=== PATIENT | female | born 1975 | race Caucasian/White ===

== ENCOUNTER → 2016-11-23 | Outpatient (CLI) | payer OTHER ==
--- NOTE | 2016-11-23 13:03 | MA ---
Diagnostic Digital Left Mammogram History: Asymmetry upper left breast. Comparison: Screening mammography November 13, 2016. Technique: A true-lateral view and 2 spot views of the upper left breast. Breast Density: 2 Findings: The density in the upper left breast does not persist on the true-lateral view and on the s mall-paddle spot compression view has the appearance of normal parenchyma that is stable since 2014. Impression: Negative left breast. BI-RADS: Category 1 . Negative. Recommendation: Screening mammography in October 2017. Results and recommendation were communicated to the patient at the time of the examination.
== END ==
LOC: FIMAGING 12:13
PROVIDERS: ATTEND Internal Medicine
DX: R92.8 Other abnormal and inconclusive findings on diagnostic imaging of breast (principal)
CPT/HCPCS: G0206

== ENCOUNTER → 2017-11-22 | Outpatient (CLI) | payer OTHER | LOC: FIMAGING 14:45 | PROVIDERS: ATTEND Obstetrics & Gynecology | DX: Z12.31 Encounter for screening mammogram for malignant neoplasm of breast (principal) ==

== ENCOUNTER → 2018-12-24 | Outpatient (CLI) | payer OTHER | LOC: FIMAGING 10:46 | PROVIDERS: ATTEND Internal Medicine Rheumatology | DX: Z12.31 Encounter for screening mammogram for malignant neoplasm of breast (principal); Z13.820 Encounter for screening for osteoporosis; M81.0 Age-related osteoporosis without current pathological fracture ==

== ENCOUNTER → 2019-01-07 | Outpatient (CLI) | payer OTHER | LOC: FIMAGING 14:18 | PROVIDERS: ATTEND Obstetrics & Gynecology | DX: R92.8 Other abnormal and inconclusive findings on diagnostic imaging of breast (principal) ==